=== PATIENT | female | born 1940 | race Caucasian/White ===

== ENCOUNTER → 2020-10-12 | Outpatient (CLI) | payer MEDICARE, OTHER ==
[2020-10-12 15:12] LABS: HEMOGLOBIN 14.4 gm/dl (12.3-15.3); RED BLOOD COUNT 4.73 M/UL (4.00-5.10); WHITE BLOOD COUNT 6.9 K/UL (4.5-11.0)
[2020-10-12 15:32] LABS: BUN/CREATININE RATIO 19 (0-10)
== END ==
LOC: LAB 13:55
PROVIDERS: Internal Medicine
DX: K74.60 Unspecified cirrhosis of liver (principal); R94.5 Abnormal results of liver function studies
CPT/HCPCS: 36415; 80053; 82105; 85027; 85610

== ENCOUNTER 2021-06-11 13:13 | Inpatient (IN) | payer MEDICARE, OTHER ==
[~2021-06-11] VITALS: Ht 162.6 cm; Wt 66.0 kg
[2021-06-11 13:59] LABS: HEMOGLOBIN 15.9 gm/dl (12.3-15.3); RED BLOOD COUNT 5.35 M/UL (4.00-5.10); WHITE BLOOD COUNT 10.2 K/UL (4.5-11.0)
[2021-06-11 14:31] LABS: BUN/CREATININE RATIO 21 (0-10)
[2021-06-11] MEDS ORDERED: ZEBETA 5 MG TAB5 MG PO (18:49)
[2021-06-11] MEDS ORDERED: LISINOPRIL-HCT1 EACH PO (18:49)
[2021-06-11] MEDS ORDERED: BACTRIM DS TAB1 EACH PO (18:49)
[2021-06-11] MEDS ORDERED: URSODIOL500 MG PO (18:50)
[2021-06-12 04:00] LABS: HEMOGLOBIN 13.3 gm/dl (12.3-15.3); RED BLOOD COUNT 4.54 M/UL (4.00-5.10); WHITE BLOOD COUNT 6.9 K/UL (4.5-11.0)
[2021-06-12 04:19] LABS: BUN/CREATININE RATIO 17 (0-10)
[2021-06-12 11:32] LABS: LDH, BODY FLUID 138 U/L; TOTAL PROTEIN, BODY FLUID 4.4 gm/dL
[2021-06-12 11:38] LABS: BODY FLUID SOURCE PLEURAL; WBC (AUTOMATED) 256 (0-500)
[2021-06-12 11:39] LABS: MONONUCLEAR CELLS 84 (75-100); POLYMORPHONUCLEAR % 16 (0-25); RBC (AUTOMATED) 300 (0-100000)
[2021-06-13 04:33] LABS: HEMOGLOBIN 13.7 gm/dl (12.3-15.3); RED BLOOD COUNT 4.66 M/UL (4.00-5.10); WHITE BLOOD COUNT 7.6 K/UL (4.5-11.0)
[2021-06-13 04:54] LABS: BUN/CREATININE RATIO 26 (0-10)
[2021-06-14 04:54] LABS: BUN/CREATININE RATIO 27 (0-10)
[2021-06-15 04:32] LABS: HEMOGLOBIN 13.3 gm/dl (12.3-15.3); RED BLOOD COUNT 4.51 M/UL (4.00-5.10); WHITE BLOOD COUNT 8.4 K/UL (4.5-11.0)
[2021-06-15 04:42] LABS: BUN/CREATININE RATIO 25 (0-10)
--- NOTE | 2021-06-15 16:48 | NUR ---
CALLED REPORT TO JODEE HENRIQUEZ AT THIS TIME
[2021-06-16 06:23] LABS: BUN/CREATININE RATIO 30 (0-10)
[2021-06-16 08:57] LABS: HEMOGLOBIN 14.9 gm/dl (12.3-15.3); WHITE BLOOD COUNT 9.8 K/UL (4.5-11.0)
[2021-06-16 09:06] LABS: RED BLOOD COUNT 4.98 M/UL (4.00-5.10)
--- NOTE | 2021-06-18 04:47 | NUR ---
PATIENTS DAUGHTER IS AT THE BED SIDE WITH PATIENT. TELE CALLED TO INFORM ME THAT THE PATIENT O2 SAT DROPPED INTO THE LOW 60'S. UPON ENTERING THE ROOM THE DAUGHTER WAS HELPING HER MOTHER TO THE RESTROOM. I INFORMED THE DAUGHTER THAT THE PATIENTS O2 SAT HAS DROPPED INTO THE 60'S AND WE NEEDED TO APPLY OXYGEN. SHE REFUSED THE OXYGEN AND TOLD ME THAT WAS INACCURATE. ONCE PATIENT SAT BACK ON THE BED HER O2 SAT RETURNED TO 95% QUICKLY. THE DAUGHTER IS A RN AT . 0415
[2021-06-18 06:35] LABS: BUN/CREATININE RATIO 27 (0-10)
[2021-06-18] MEDS ORDERED: FUROSEMIDE20 MG PO (12:43)
[2021-06-18] MEDS ORDERED: ASPIRIN 325MG325 MG PO (12:47)
[2021-06-18] MEDS ORDERED: POLYETHYLENE GL17 GM PO (12:47)
[2021-06-18] MEDS ORDERED: KLOR-CON 1010 MEQ PO (12:49)
[2021-06-18] MEDS ORDERED: LISINOPRIL10 MG PO (13:00)
[2021-06-18 16:51] LABS: BODY FLUID SOURCE PLEURAL; RBC (AUTOMATED) 1300 (0-100000); WBC (AUTOMATED) 984 (0-500)
[2021-06-18 16:52] LABS: MONONUCLEAR CELLS 64 (75-100); POLYMORPHONUCLEAR % 36 (0-25)
[2021-06-18 16:57] LABS: LDH, BODY FLUID 219 U/L; TOTAL PROTEIN, BODY FLUID 3.7 gm/dL
[2021-06-19 07:08] LABS: BUN/CREATININE RATIO 31 (0-10)
== END 2021-06-19 13:21 | DRG 291 ==
LOC: ER1 13:13 → CDU 18:10 → PROG CARE 18:10 → M/S 18:10 → MED SURG 4 20:00 → PROG CARE 21:35 → M/S 06-15 17:49
PROVIDERS: Family Medicine; Internal Medicine; ADMIT Internal Medicine
PROC: 0W993ZZ Drainage of Right Pleural Cavity, Percutaneous Approach (ICD-10-PCS; principal; 2021-06-12)
PROC: BB4BZZZ Ultrasonography of Pleura (ICD-10-PCS; 2021-06-12)
PROC: B24BZZZ Ultrasonography of Heart with Aorta (ICD-10-PCS; 2021-06-12)
PROC: 0W993ZZ Drainage of Right Pleural Cavity, Percutaneous Approach (ICD-10-PCS; 2021-06-18)
PROC: BB4BZZZ Ultrasonography of Pleura (ICD-10-PCS; 2021-06-18)
DX: I11.0 Hypertensive heart disease with heart failure (principal); J18.9 Pneumonia, unspecified organism; Z20.822 Contact with and (suspected) exposure to COVID-19; I50.33 Acute on chronic diastolic (congestive) heart failure; J96.01 Acute respiratory failure with hypoxia; J90 Pleural effusion, not elsewhere classified; E87.1 Hypo-osmolality and hyponatremia; K75.81 Nonalcoholic steatohepatitis (NASH); J32.9 Chronic sinusitis, unspecified; R29.6 Repeated falls; E83.42 Hypomagnesemia; W18.30XA Fall on same level, unspecified, initial encounter; I48.91 Unspecified atrial fibrillation; Z79.01 Long term (current) use of anticoagulants; Z79.82 Long term (current) use of aspirin
CPT/HCPCS: ECHO; 36415; 70450; 71045; 80048; 80053; 82150; 82550; 82553; 82945; 83615; 83735; 83874; 83986; 84157; 84484; 85025; 86140; 87070; 87205; 89051; 93005; 93306; 94760; 97110-GP-CQ; 97116; 97116-GP-CQ; 97162; 99285; C9113; J0456; J0696; J1940; J2405; J3475; J3480; J7030; Q9967; U0002